=== PATIENT | female | born 1970 | race Caucasian/White ===

== ENCOUNTER 2018-07-02 05:53 | Day surgery (SDC) | payer BC ==
[~2018-07-02] VITALS: Ht 167.6 cm; Wt 82.0 kg
[~2018-07-02 05:53] MED LIST: AMOX500 PO; ATOR10 PO; ATOR40TA PO; Bactrim Ds Tab1 EACH PO; CEFU50SU PO; CLOP75 PO; DIPATR PO; HYDACE5 PO; HYDHCL25 PO; IBUP600 PO; LOW DOSE ASPIRI81 MG PO; MECL12.5 PO; MUPI2TC TOP; PROM25 PO; RXTRAM50 PO; SULTRIDS PO; TRAM50 PO
--- NOTE | 2018-07-02 07:38 | NUR ---
PT TOLERATES LINQ EXPLANT WELL. VSS. NADN. CALL LIGHT WITHIN REACH.
== END 2018-07-03 22:53 | disposition home or self-care (01) ==
LOC: MHTC 05:53
DX: Z45.09 Encounter for adjustment and management of other cardiac device (principal); I63.9 Cerebral infarction, unspecified; R27.0 Ataxia, unspecified; R47.9 Unspecified speech disturbances; E78.00 Pure hypercholesterolemia, unspecified; Z95.818 Presence of other cardiac implants and grafts; Z88.1 Allergy status to other antibiotic agents
CPT/HCPCS: 33286; 99152; J0690; J2250; J3010; J7040

== ENCOUNTER 2018-09-22 14:52 | Emergency (ER) | payer BC ==
[~2018-09-22] VITALS: Ht 167.6 cm; Wt 81.7 kg
[2018-09-22 15:45] LABS: BASOPHILS ABSOLUTE AUTO 0.03 K/mm3 (0.00-0.23); BASOPHILS PERCENT AUTO 1 % (0-2); EOSINOPHILS PERCENT AUTO 3 % (0-6); Hematocrit 41.3 % (33.0-51.0); Hemoglobin 13.2 g/dL (11.5-16.0); IMMATURE GRAN ABSOLUTE AUTO 0.01 K/mm3 (0.00-0.10); IMMATURE GRAN PERCENT AUTO 0 % (0-1); LYMPHOCYTES PERCENT AUTO 30 % (21-46); MONOCYTES ABSOLUTE AUTO 0.43 K/mm3 (0.16-1.47); MONOCYTES PERCENT AUTO 7 % (4-13); Mean Corpuscular Volume 88 fL (80-100); Mean Platelet Volume 10.8 fL (9.1-12.4); NEUTROPHILS ABSOLUTE AUTO 3.62 K/mm3 (1.96-9.15); NEUTROPHILS PERCENT AUTO 59 % (41-73); Platelet Count 248 K/mm3 (150-400); RDW Standard Deviation 45.3 fL (35.1-46.3); Red Blood Cell Count 4.72 M/mm3 (3.80-5.20); White Blood Cell Count 6.09 K/mm3 (4.00-11.30)
[2018-09-22 16:17] LABS: Alanine Aminotransfer (ALT/SGP 24 U/L (12-78); Albumin, Blood 3.9 g/dL (3.4-5.0); Albumin/Globulin Ratio 1.1 (0.8-1.8); Alk Phos 62 U/L (50-136); Anion Gap 4 mmol/L (6-16); Aspartate Aminotrans (AST/SGOT 19 U/L (12-37); Bilirubin, Total 0.7 mg/dL (0.1-1.0); Blood Urea Nitrogen 16 mg/dL (8-24); Bun/Creatinine Ratio 20.2 (12.0-20.0); CO2, Blood 30 mmol/L (21-32); Calcium, Blood 8.6 mg/dL (8.5-10.1); Chloride, Blood 106 mmol/L (98-108); Creatinine, Blood 0.79 mg/dL (0.40-1.00); Ethanol (Alcohol), Blood, Med <3 mg/dL; Globulin, Blood 3.6 g/dL (2.2-4.0); Glomerular Filtration Rate >60 (60-); Glucose, Blood 89 mg/dL (70-99); Potassium, Blood 3.5 mmol/L (3.5-5.5); Salicylate <1.7 mg/dL (2.8-20.0); Sodium, Blood 140 mmol/L (136-145); Total Protein, Blood 7.5 g/dL (6.4-8.2)
[2018-09-22 17:19] LABS: Acetaminophen, Random <2.0 ug/mL (10.0-30.0)
== END 2018-09-22 17:18 | disposition home or self-care (01) ==
LOC: ER 14:52
PROVIDERS: Physician Assistant
DX: F19.10 Other psychoactive substance abuse, uncomplicated (principal); Z88.1 Allergy status to other antibiotic agents
CPT/HCPCS: 36415; 80053; 84443; 85025; 99283; G0480

== ENCOUNTER → 2019-02-27 | Outpatient (CLI) | payer BC, OTHER ==
[2019-03-03 16:06] LABS: HPV 16 Negative (Negative); HPV 18 Negative (Negative); HPV OTHER HR TYPES Negative (Negative)
== END ==
LOC: LAB SHORT 13:25 → LAB 13:25
PROVIDERS: Nurse Practitioner Family
DX: Z12.4 Encounter for screening for malignant neoplasm of cervix (principal)
CPT/HCPCS: 87624; G0123

== ENCOUNTER 2023-02-22 11:00 | Day surgery (SDC) | payer BC, OTHER ==
[2023-02-22] VITALS (10 sets, daily range): BP systolic 116–132; BP diastolic 74–98
[~2023-02-22] VITALS: Ht 167.6 cm; Wt 97.2 kg
--- NOTE | 2023-02-22 13:52 | NUR ---
REPORT FROM ARACELY BALDERAS RN WHEN TRANSFERRED TO STEPDOWN. PT REPORTED PRESSURE AND MILD PAIN IN LOWER ABD AND PUBIC REGION. PT AMBULATED WITH ONE PERSON ASSIST TO BEDSIDE COMMODE TO URINATE. SCANT AMOUNT OF BLOOD ON PERIPAD. PT ABLE TO URINATE AND REPORTS PAIN BEING ALLEVIATED BY URINATION. PERIPAD AND MADONNA PANTIES PROVIDED. PT TOLERATING JELLO PO, FLUIDS AND REQUESTING TO BE DISCHARGED.
--- NOTE | 2023-02-22 14:20 | NUR ---
Patient up to Ambulate independently. Gait steady. Discharge instructions reviewed with patient. Patient verbalizes understanding. Copy given to patient to take home. Patient States Post-Procedure ride home has been arranged. Discharged via wheelchair to private car for ride home. PT ABLE TO URINATE X2 BEFORE DISCHARGING HOME. PT HAD SCANT AMOUNT OF BLOOD ON PERIPAD UPON DISCHARGING HOME WELL. ALL BELONGINGS RETURNED TO PT TO INCLUDE ONE CELL PHONE.
== END 2023-02-22 22:36 | disposition home or self-care (01) ==
LOC: ORSCMMR 11:00
PROVIDERS: Obstetrics & Gynecology
PROC: 0UDB8ZX Extraction of Endometrium, Via Natural or Artificial Opening Endoscopic, Diagnostic (ICD-10-PCS; principal; 2023-02-22 11:30)
DX: N92.1 Excessive and frequent menstruation with irregular cycle (principal); N94.6 Dysmenorrhea, unspecified
CPT/HCPCS: 88305; A9270; J0690; J1100; J1885; J2405; J7120

== ENCOUNTER 2023-03-21 09:44 | Day surgery (SDC) | payer BC ==
[2023-03-21] VITALS (18 sets, daily range): BP systolic 103–133; BP diastolic 68–83
[~2023-03-21] VITALS: Ht 170.2 cm; Wt 99.6 kg
[~2023-03-21 09:44] MED LIST changes: +FERRIMIN 150456 MG PO; +Norethindrone Ac5 MG PO
--- NOTE | 2023-03-21 10:40 | NUR ---
Ambulatory in Day Surgery. History, Chart, Medications and Allergies reviewed before start of procedure.Patient confirms NPO status and agrees with scheduled surgery. Pre-Op teaching done. Pt verbalizes understanding. Lungs clear T/O to Auscultation.
--- NOTE | 2023-03-21 10:55 | NUR ---
PT REPORTS HAVING 2 TIC TAC EARLIER THIS MORNING,DISCUSSED WITH DR TYSON AND ANESTHESIA.
--- NOTE | 2023-03-21 11:03 | NUR ---
LAB RECENTLY HERE AND [facility] RN WAS UNABLE TO DRAW OFF IV, OK TO PROCEED WITH PROCEDURE PRIOR TO RESULTS PER DR TYSON AND ANESTHESIA PER Flory HART.
[2023-03-21 11:24] LABS: BASOPHILS ABSOLUTE AUTO 0.04 K/mm3 (0.00-0.23); BASOPHILS PERCENT AUTO 1 % (0-2); EOSINOPHILS ABSOLUTE AUTO 0.24 K/mm3 (0.00-0.68); EOSINOPHILS PERCENT AUTO 3 % (0-6); Hematocrit 42.1 % (33.0-51.0); Hemoglobin 14.7 g/dL (11.5-16.0); IMMATURE GRAN ABSOLUTE AUTO 0.04 K/mm3 (0.00-0.10); IMMATURE GRAN PERCENT AUTO 1 % (0-1); LYMPHOCYTES ABSOLUTE AUTO 2.36 K/mm3 (0.84-5.20); LYMPHOCYTES PERCENT AUTO 29 % (21-46); MONOCYTES ABSOLUTE AUTO 0.51 K/mm3 (0.16-1.47); MONOCYTES PERCENT AUTO 6 % (4-13); Mean Corpuscular HGB 30.4 pg (26.0-34.0); Mean Corpuscular HGB Conc 34.9 g/dL (31.5-36.5); Mean Corpuscular Volume 87 fL (80-100); Mean Platelet Volume 10.5 fL (9.1-12.4); NEUTROPHILS ABSOLUTE AUTO 4.93 K/mm3 (1.96-9.15); NEUTROPHILS PERCENT AUTO 61 % (41-73); Platelet Count 230 K/mm3 (150-400); RDW Coefficient Variation 13.3 % (11.7-14.2); RDW Standard Deviation 41.4 fL (35.1-46.3); Red Blood Cell Count 4.83 M/mm3 (3.80-5.20); White Blood Cell Count 8.12 K/mm3 (4.00-11.30)
--- NOTE | 2023-03-21 17:29 | NUR ---
SHIFT SUMMARY S/P TRESA TOTAL LAP HYSTER, 4 LAP EXOFIN CDI, PERIPAD SCANT BLOOD. A&OX4, VSS/RA, KRISTINA PO, VILLEGAS PATENT & DRAINING YELLOW URINE/STAT LOCK ON/OFF FLOOR, REPOSITIONS SELF, PAIN TREATED PER EMAR, IVF @ 125/ABX PER EMAR. WILL REPORT TO ONCOMING NOC HAI[place].
[2023-03-22 00:05] VITALS: BP 137/75
[2023-03-22 03:26] VITALS: BP 116/87
[2023-03-22 05:52] LABS: BASOPHILS ABSOLUTE AUTO 0.02 K/mm3 (0.00-0.23); BASOPHILS PERCENT AUTO 0 % (0-2); EOSINOPHILS PERCENT AUTO 0 % (0-6); Hematocrit 41.3 % (33.0-51.0); Hemoglobin 14.1 g/dL (11.5-16.0); IMMATURE GRAN ABSOLUTE AUTO 0.07 K/mm3 (0.00-0.10); IMMATURE GRAN PERCENT AUTO 1 % (0-1); LYMPHOCYTES ABSOLUTE AUTO 1.49 K/mm3 (0.84-5.20); LYMPHOCYTES PERCENT AUTO 10 % (21-46); MONOCYTES ABSOLUTE AUTO 0.61 K/mm3 (0.16-1.47); MONOCYTES PERCENT AUTO 4 % (4-13); Mean Corpuscular HGB 29.9 pg (26.0-34.0); Mean Corpuscular HGB Conc 34.1 g/dL (31.5-36.5); Mean Corpuscular Volume 88 fL (80-100); Mean Platelet Volume 10.6 fL (9.1-12.4); NEUTROPHILS ABSOLUTE AUTO 13.03 K/mm3 (1.96-9.15); NEUTROPHILS PERCENT AUTO 86 % (41-73); Platelet Count 272 K/mm3 (150-400); RDW Standard Deviation 41.8 fL (35.1-46.3); Red Blood Cell Count 4.71 M/mm3 (3.80-5.20); White Blood Cell Count 15.22 K/mm3 (4.00-11.30)
[2023-03-22 06:15] VITALS: BP 123/81
[2023-03-22 07:33] VITALS: BP 126/80
--- NOTE | 2023-03-22 07:41 | NUR ---
SHIFT SUMMARY NOC. PT POD 1 FOR ROBOTIC TOTAL LAP HYSTER WITH DR. TYSON. PT MEDICATED FOR PAIN AND NAUSEA WITH RELIEF OF SYMPTOMS. PT LAP SITES X4 ARE CDI AND ABDOMINAL BINDER IN PLACE. PT UP TO BEDSIDE COMMODE X1 THIS SHIFT. PT VOMITED CLEAR FLUIDS AFTER DRINKING WATER EARLY IN SHIFT. PT RESTED WITH EYES CLOSED AND CALL LIGHT IN REACH.
[2023-03-22] MEDS ORDERED: IBUP400 PO (11:12)
[2023-03-22] MEDS ORDERED: ESTRADIOL1 MG PO (11:12)
[2023-03-22] MEDS ORDERED: Percocet 5-3251 EACH PO (11:13)
[2023-03-22] MEDS ORDERED: SIME80CH PO (11:14)
[2023-03-22] MEDS ORDERED: PROM25 PO (11:14)
[2023-03-22 14:07] VITALS: BP 108/79
--- NOTE | 2023-03-22 15:06 | NUR ---
discharged pt tolerating po, pain controlled w/ po pain meds. voiding without difficulty. iv dc'd. reviewed dc instructions w/pt; verbalized understanding. medicated pt w/ 0.5 tab percocet per pt's request prior to discharge for 3/10 pain to abd. pt left unit in [facility] w/possessions and dc paperwork in hand to ride waiting outside.
== END 2023-03-22 15:23 | disposition home or self-care (01) ==
LOC: ORSCMMR 09:44 → SURS 15:16 → ORSCMMR 03-22 15:23
PROVIDERS: Obstetrics & Gynecology
PROC: 0UT2FZZ Resection of Bilateral Ovaries, Via Natural or Artificial Opening With Percutaneous Endoscopic Assistance (ICD-10-PCS; principal; 2023-03-21 11:00)
PROC: 0UT7FZZ Resection of Bilateral Fallopian Tubes, Via Natural or Artificial Opening With Percutaneous Endoscopic Assistance (ICD-10-PCS; principal; 2023-03-21 11:00)
PROC: 0UT9FZZ Resection of Uterus, Via Natural or Artificial Opening With Percutaneous Endoscopic Assistance (ICD-10-PCS; principal; 2023-03-21 11:00)
DX: N92.1 Excessive and frequent menstruation with irregular cycle (principal); N94.6 Dysmenorrhea, unspecified; D25.9 Leiomyoma of uterus, unspecified; N80.03 Adenomyosis of the uterus; N80.30 Endometriosis of pelvic peritoneum, unspecified; N73.6 Female pelvic peritoneal adhesions (postinfective); Z86.73 Personal history of transient ischemic attack (TIA), and cerebral infarction without residual deficits; E66.9 Obesity, unspecified; Z68.34 Body mass index [BMI] 34.0-34.9, adult; Z79.899 Other long term (current) drug therapy
CPT/HCPCS: 36415; 85025; 86850; 86900; 86901; 88305; 88307; 94762; A9270; J0690; J1100; J1170; J1885; J2250; J2405; J2704; J3010; J7120

== ENCOUNTER → 2024-04-22 | Outpatient (CLI) | payer BC ==
[~2024-04-22] MED LIST changes: +ESTRADIOL1 MG PO; +IBUP400 PO; +Percocet 5-3251 EACH PO; +SIME80CH PO
[2024-04-22 15:38] LABS: Alanine Aminotransfer (ALT/SGP 32 U/L (12-78); Albumin, Blood 3.8 g/dL (3.4-5.0); Albumin/Globulin Ratio 1.2 (0.8-1.8); Alk Phos 78 U/L (50-136); Anion Gap 14 mmol/L (3-11); Aspartate Aminotrans (AST/SGOT 18 U/L (12-37); Bilirubin, Total 0.7 mg/dL (0.1-1.0); Blood Urea Nitrogen 17 mg/dL (8-24); Bun/Creatinine Ratio 21.9 (12.0-20.0); CHOL/HDL RATIO 3.1; CO2, Blood 26 mmol/L (21-32); Calcium, Blood 9.3 mg/dL (8.5-10.1); Chloride, Blood 110 mmol/L (98-108); Cholesterol 164 mg/dL (50-200); Creatinine, Blood 0.78 mg/dL (0.40-1.00); Free Thyroxine 0.96 ng/dL (0.70-1.60); Globulin, Blood 3.1 g/dL (2.2-4.0); Glomerular Filtration Rate 92 (60-); Glucose, Blood 108 mg/dL (70-99); HDL Cholesterol 53 mg/dL (>39); LDL/HDL RATIO 1.7; Low Density Lipoprotein Chol 89 mg/dL (0-110); Potassium, Blood 3.8 mmol/L (3.5-5.5); Sodium, Blood 146 mmol/L (136-145); Total Protein, Blood 6.9 g/dL (6.4-8.2); Triglycerides 109 mg/dL (30-160); Very Low Density Lipoprot Chol 21 mg/dL (6-32)
== END ==
LOC: LAB 09:35 → LAB SHORT 09:35
PROVIDERS: Hospitalist
DX: E78.00 Pure hypercholesterolemia, unspecified (principal)
CPT/HCPCS: 80053; 80061; 84439; 84443